=== PATIENT | male | born 1960 | race Caucasian/White ===

== ENCOUNTER → 2024-10-07 07:14 | Outpatient (REF) | payer OTHER, SELFPAY | LOC: HWRAD 07:14 | PROVIDERS: ATTENDING PHYSICIAN Physician Assistant Medical | DX: M54.2 Cervicalgia (principal) | CPT/HCPCS: 72052; 73030 ==

== ENCOUNTER → 2025-10-05 12:50 | Outpatient (REF) | payer OTHER, SELFPAY | LOC: RAD 12:50 | PROVIDERS: ATTENDING PHYSICIAN Student in an Organized Health Care Education/Training Program | DX: M54.41 Lumbago with sciatica, right side (principal); M54.42 Lumbago with sciatica, left side | CPT/HCPCS: 72110; 72220 ==

== ENCOUNTER 2025-10-25 06:58 | Emergency (ER) | payer OTHER, SELFPAY ==
[2025-10-25 07:04] VITALS: BP 142/86
[2025-10-25 07:31] VITALS: BMI 25.8
--- NOTE | 2025-10-25 08:03 | ED.GENMED ---
History of Present Illness
General
Chief Complaint: Back Pain
Source: patient
Time Seen by Provider: 10/25/25 07:32
History of Present Illness
History of Present Illness:
65-year-old male with past medical history of hyperlipidemia and previous diverticulitis presenting to the emergency department for evaluation of lower back pain stating that on he had an accidental fall directly onto his tailbone, saw
his primary care provider for this and was started on a prednisone taper and tramadol which he states ultimately did give him some relief, had an x-ray at the time which was reportedly unremarkable for any acute injury. 2 days ago patient was
attempting to put on a pair of jeans, his foot got stuck causing him to twist, did not fall directly onto the ground, but since that time has had continued lower back pain and difficulty with movement. Patient states he is having a hard time
getting comfortable in any position and describes it as if someone is squeezing his pelvic area. Pain radiates into the thighs bilaterally but does not extend down into the lower legs. No fevers, no bowel or urinary incontinence, no saddle
anesthesia, no focal weakness or numbness, no other red flag symptoms for back pain. Patient did take some Advil at 5 AM with slight relief. No other concerns presently
Past History
Past History
ED Past Medical History: Hypercholesterolemia
ED Past Surgical History: None
Social History
Tobacco: Non-smoker
Alcohol: Occasional
Drug: None
Personal:
Living: with family
Employment: Employed
Family History
Family History: CAD
Review of Systems
Review of Systems
All Other Systems: ROS reviewed and negative except as documented in HPI and ROS
Phy Exam
Physical Exam
Physical Exam:
GENERAL: Alert , in no apparent distress
EYE: clear conjunctiva b/l
NECK: Supple
ENT: o/p clr, mmm.
CARDIAC: Regular rate and rhythm .
LUNGS: Clear breath sounds bilaterally, no acute respiratory distress, no wheezes/rales/rhonchi
BACK: limited range of motion 2/2 pain, no focal tenderness, no midline bony tenderness, no rashes
NEUROLOGICAL: Alert and oriented, no focal neuro deficits. Patellar deep tendon reflexes intact and equal bilaterally, sensation grossly intact and equal to light touch bilateral lower extremities
SKIN: Warm and dry, skin intact.
MUSCULOSKELETAL: No edema, well perfused. EHL intact bilaterally
PSYCH: Normal and appropriate interaction.
Scores
Heart Failure Risk
Heart Failure Risk Score: Not Applicable
Heart Score for Chest Pain Patients
STEMI patient?: Not applicable
Withdrawal Assessment of Alcohol
Withdrawal Assessment Completed?: Not applicable
Course
Orders/Labs/Results
Orders:
Orders
10/25/25 07:46
Cyclobenzaprine HCl [Flexeril] 10 mg PO NOW STA
Dexamethasone Sod Phosphate [Decadron] 10 mg IM NOW STA
Ibuprofen [Motrin] 600 mg PO NOW STA
Lidocaine [Lidocaine 4% Patch] 1 patch TOPICAL NOW STA
Apply Lidocaine patch(s) to:: lower back
Vital Signs
Initial and Last Documented VS:
Initial Vital Signs
Temp Pulse Resp BP Pulse Ox
97.4 F 82 20 142/86 98
10/25/25 07:04 10/25/25 07:04 10/25/25 07:04 10/25/25 07:04 10/25/25 07:04
Last Documented Vital Signs
Temp Pulse Resp BP Pulse Ox
97.4 F 82 20 142/86 98
10/25/25 07:04 10/25/25 07:04 10/25/25 07:04 10/25/25 07:04 10/25/25 08:05
MDM/Problems Addressed
Differential Diagnosis Includes:
Spinal stenosis
Lumbar strain
Compression fracture
Disc herniation/nerve impingement
No symptoms to suggest infectious etiology
No symptoms of neurogenic claudication
MDM/Problems Addressed:
65-year-old male presenting to the ER for evaluation of back pain, initially pain started with a fall, somewhat resolved with medications but pain restarted after an accidental twisting injury. Patient does appear uncomfortable with movements but
notes that he is even uncomfortable at rest. Overall I doubt any emergent back pathology and patient will likely need to continue follow-up as an outpatient, discussed outpatient MRI imaging. Will treat here with Decadron and Flexeril (patient has
had relief with Flexeril in the past with neck pain). He has an appointment for acupuncture tomorrow. Encouraged close follow-up with primary care provider.
*Pulse Oximetry
SaO2: 98
Oxygen Mode of Delivery: Room air
Patient hypoxic: no
*Critical Care Note
Total Time (30-74mins, 75-104mins- exclusive of procedures): Not Applicable
Data Reviewed
Review of Other/Old Records Reveals: Records and Radiology Studies
Patient Management
Escalation/DeEscalation of care consider admission/obs:
Patient does report improvement of pain following medications here although pain still present. He does feel comfortable being discharged home. Will follow-up as an outpatient. Aware of return precautions to the ER.
ED Attending Note
-
Portions of this chart may have been created with voice recognition software.� Occasional wrong word or��sound alike� substitutions may have occurred due to the inherent limitations of voice recognition software.
Discharge Plan
Departure
Patient Disposition: Home (Routine Discharge)
Date of Disposition: 10/25/25
Time of Disposition: 09:15
Patient with high blood pressure during this ER visit?: Yes
Discharge Problem:
Dorsalgia of lumbosacral region
Instructions: Low Back Pain (DC)
Prescriptions:
New
cyclobenzaprine 5 mg tablet
5 mg PO TID PRN (Reason: muscle spasm) Qty: 15 0RF
prednisone 10 mg Tablet
See Rx Instructions .ROUTE .COMPLEX Qty: 45 0RF
Rx Instructions:
Take By Mouth:
50 mg daily x3 days, 40 mg daily x3 days,
30 mg daily x3 days, 20 mg daily x3 days,
10 mg daily x3 days
No Action
Statin
1 tab PO HS
Patient Comments:
Unknown medication and dosage
Referrals:
Mik Vu DO [Family Provider, Family Practice]
Interventions
Interventions:
*General Assessment Last Done: 10/25/25 07:04
*Neglect/Abuse Screening Last Done: 10/25/25 07:04
*Risk Screen - Suicide (C-SSRS) Last Done: 10/25/25 07:04
*Nursing Disposition Last Done: 10/25/25 09:42
ED-Musculoskeletal Assessment Last Done: 10/25/25 07:31
Discharge Date and Time
Discharge Date/Time: 10/25/25 09:43
Print Language: SERBIAN
[2025-10-25] MEDS: DECADRON 10 MG IM (08:07)
[2025-10-25] MEDS: FLEXERIL 10 MG PO (08:08)
[2025-10-25] MEDS: LIDOCAINE 4% PATCH 1 PATCH TOPICAL (08:08)
== END 2025-10-25 09:43 | disposition home or self-care (01) ==
LOC: EMR 06:58
PROVIDERS: EMERGENCY PHYSICIAN Emergency Medicine; FAMILY PHYSICIAN Student in an Organized Health Care Education/Training Program
DX: M54.50 Low back pain, unspecified (principal); M79.605 Pain in left leg; M79.604 Pain in right leg; W19.XXXA Unspecified fall, initial encounter; R03.0 Elevated blood-pressure reading, without diagnosis of hypertension; E78.00 Pure hypercholesterolemia, unspecified; K57.92 Diverticulitis of intestine, part unspecified, without perforation or abscess without bleeding
CPT/HCPCS: 99284; 96372